=== PATIENT | female | born 1960 | race Caucasian/White ===

== ENCOUNTER 2016-11-30 14:39 | Emergency (ER) | payer OTHER ==
[~2016-11-30] VITALS: Ht 165.1 cm; Wt 74.2 kg
[2016-11-30] MEDS ORDERED: NAPROSYN500 MG PO (17:56)
[2016-11-30] MEDS ORDERED: ZOFRAN ODT4 MG PO (17:56)
[2016-11-30] MEDS ORDERED: TRAMADOL HCL50 MG PO (17:56)
[2016-11-30 18:13] VITALS: BP 156/92
== END 2016-11-30 18:19 | disposition home or self-care (01) ==
LOC: EME 14:39
DX: R51 Headache (principal); R11.0 Nausea; H53.9 Unspecified visual disturbance
CPT/HCPCS: 99281; 99284; J1885